=== PATIENT | male | born 1985 | race African-American/Black ===

== ENCOUNTER 2021-09-07 22:03 | Emergency (ER) | payer MEDICAID ==
[~2021-09-07] VITALS: Ht 190.5 cm; Wt 148.1 kg
[2021-09-07] MEDS ORDERED: CLOT15CR27 TP (23:39)
[2021-09-07] MEDS ORDERED: MUPI15CR11 TP (23:39)
[2021-09-07] MEDS ORDERED: FLUC200T51 MT (23:39)
[2021-09-07 23:45] VITALS: BP 110/83
[2021-09-07] MEDS ORDERED: KETOROLAC 60MG/2ML VIAL IM ONE (23:45)
== END 2021-09-08 01:02 | disposition home or self-care (01) ==
LOC: ER 22:03
DX: K83.09 Other cholangitis (principal); Z59.00 Homelessness unspecified
CPT/HCPCS: 99281

== ENCOUNTER 2021-10-31 09:14 | Emergency (ER) | payer MEDICAID ==
[~2021-10-31] VITALS: Ht 190.5 cm; Wt 132.0 kg
[~2021-10-31 09:14] MED LIST: CLOT15CR27 TP; FLUC200T51 MT; MUPI15CR11 TP
[2021-10-31] MEDS ORDERED: KETOROLAC 30MG/ML VIAL IV STA (10:03)
[2021-10-31 10:27] LABS: BASOPHILS % 0.4 % (0.0-2.0); EOSINOPHILS % 2.2 % (0.0-5.0); HEMATOCRIT. 40.3 % (42.0-52.0); HEMOGLOBIN. 13.6 g/dL (14.0-18.0); LYMPHOCYTES % 18.1 % (20.0-50.0); MEAN CORPUSCULAR VOLUME 86.1 fL (80.0-94.0); MEAN PLATELET VOLUME 8.3 fl (7.4-10.4); MONOCYTES % 9.2 % (2.0-8.0); NEUTROPHILS % 70.1 % (40.0-76.0); PLATELET 285 x1000/uL (130-400); RED BLOOD CELL COUNT 4.69 mill/uL (4.7-6.1)
[2021-10-31 10:34] LABS: CHLORIDE 109 mEq/L (98-107)
[2021-10-31] MEDS ORDERED: P20 MT (10:55)
[2021-10-31] MEDS ORDERED: IBUP-2030 MT (10:55)
[2021-10-31 11:06] VITALS: BP 142/89
== END 2021-10-31 11:08 | disposition home or self-care (01) ==
LOC: ER 11:06
DX: M79.641 Pain in right hand (principal); Z98.890 Other specified postprocedural states
CPT/HCPCS: 36415; 73130; 80053; 84550; 85025; 96374; 99284; J1885

== ENCOUNTER 2021-12-08 09:22 | Emergency (ER) | payer MEDICAID ==
[~2021-12-08] VITALS: Ht 190.5 cm; Wt 140.0 kg
[~2021-12-08 09:22] MED LIST changes: +IBUP-2030 MT; +P20 MT
[2021-12-08 09:40] VITALS: BP 145/81
[2021-12-08] MEDS ORDERED: P20 MT (10:41)
[2021-12-08] MEDS ORDERED: IBUP-2029 MT (10:41)
[2021-12-08] MEDS ORDERED: HC A30CR10 RC (10:41)
[2021-12-08] MEDS ORDERED: IBUPROFEN 600MG TABLET PO NR (10:45)
== END 2021-12-08 11:09 | disposition home or self-care (01) ==
LOC: ER 09:47
DX: M79.671 Pain in right foot (principal)
CPT/HCPCS: 99281

== ENCOUNTER 2022-03-05 10:08 | Emergency (ER) | payer MEDICAID ==
[~2022-03-05] VITALS: Ht 190.5 cm; Wt 150.1 kg
[~2022-03-05 10:08] MED LIST changes: +HC A30CR10 RC; +IBUP-2029 MT
[2022-03-05] MEDS ORDERED: IBUPROFEN 400MG TABLET PO ONE (12:00)
[2022-03-05 12:17] VITALS: BP 124/76
[2022-03-05] MEDS ORDERED: P20 MT (14:41)
[2022-03-05] MEDS ORDERED: COLC0.6C3 MT ×2 (14:41→15:09)
[2022-03-05] MEDS ORDERED: INDO-13 MT (14:41)
== END 2022-03-05 15:15 | disposition home or self-care (01) ==
LOC: ER 10:08
DX: M10.9 Gout, unspecified (principal); Z79.899 Other long term (current) drug therapy
CPT/HCPCS: 73630; 99283

== ENCOUNTER 2022-07-05 13:08 | Emergency (ER) | payer MEDICAID ==
[~2022-07-05] VITALS: Ht 188 cm; Wt 146.0 kg
[~2022-07-05 13:08] MED LIST changes: +COLC0.6C3 MT; +INDO-13 MT
[2022-07-05 13:32] VITALS: BP 137/85
[2022-07-05] MEDS ORDERED: IBUPROFEN 400MG TABLET PO ONE (15:30)
[2022-07-05] MEDS ORDERED: IBUP-2028 MT (16:45)
== END 2022-07-05 17:35 | disposition home or self-care (01) ==
LOC: ER 13:08
DX: M25.511 Pain in right shoulder (principal); M25.522 Pain in left elbow
CPT/HCPCS: 73030; 73080; 99284

== ENCOUNTER 2022-11-30 11:24 | Emergency (ER) | payer MEDICAID ==
[~2022-11-30] VITALS: Ht 188 cm; Wt 127.0 kg
[~2022-11-30 11:24] MED LIST changes: +IBUP-2028 MT
[2022-11-30 11:31] VITALS: TEMP 98.8; O2SAT 100
[2022-11-30] MEDS ORDERED: KETOROLAC 30MG/ML VIAL IM ONE (13:45)
[2022-11-30] MEDS ORDERED: NAPR-1176 MT (13:53)
[2022-11-30] MEDS ORDERED: CYCL5TAB MT (13:53)
[2022-11-30] MEDS ORDERED: LIDO700A15 TP (13:53)
[2022-11-30 14:15] VITALS: BP 150/96; PULSE 71; RESP 20
== END 2022-11-30 14:17 | disposition home or self-care (01) ==
LOC: ER 13:12
DX: M62.830 Muscle spasm of back (principal); Z79.899 Other long term (current) drug therapy
CPT/HCPCS: 99283; 96372; J1885